=== PATIENT | male | born 1995 | race Caucasian/White ===

== ENCOUNTER 2021-03-16 19:43 | Emergency (ER) | payer SELFPAY ==
[2021-03-16] MEDS ORDERED: predniSONE 20 MG TAB ONE (20:50)
[2021-03-16] MEDS ORDERED: diphenhydrAMINE 25 MG CAP ONE (20:51)
[2021-03-16] MEDS ORDERED: Famotidine/PF 20 mg/2ml Vial ONE (20:51)
== END 2021-03-16 22:17 | disposition home or self-care (01) ==
LOC: CSHERS 19:43
DX: T78.40XA Allergy, unspecified, initial encounter (principal); Q35.7 Cleft uvula; F17.290 Nicotine dependence, other tobacco product, uncomplicated
CPT/HCPCS: 99284; J7512; S0028

== ENCOUNTER 2021-03-17 11:14 | Emergency (ER) | payer SELFPAY ==
[2021-03-17] MEDS ORDERED: hydrOXYzine 25 MG TAB ONE (11:54)
== END 2021-03-17 12:41 | disposition home or self-care (01) ==
LOC: CSHERS 11:14
DX: F43.0 Acute stress reaction (principal); F17.290 Nicotine dependence, other tobacco product, uncomplicated
CPT/HCPCS: 99284